=== PATIENT | male | born 1995 | race African-American/Black ===

== ENCOUNTER 2016-06-20 21:04 | Emergency (ER) | payer SELFPAY ==
[~2016-06-20] VITALS: Ht 188 cm; Wt 104.3 kg
[2016-06-20] MEDS ORDERED: LORAZEPAM INJ 2 MG/ML VIAL ONE (21:29)
[2016-06-20] MEDS ORDERED: LORAZEPAM INJ 2 MG/ML VIAL IV ONE (21:30)
[2016-06-20] MEDS ORDERED: IV NS 0.9% 1,000 ML ONE (21:30)
[2016-06-20] MEDS ORDERED: IV NS 0.9% 1,000 ML BAG IV ONE (21:30)
[2016-06-20] MEDS ORDERED: IV SET PRIMARY 1 EA INFUS.SET MC ONE (21:30)
[2016-06-20 21:41] LABS: BASOPHILS % (AUTO) 0.6 % (0.0-2.0); DIFF TOTAL % 100 %; EOSINOPHILS # (AUTO) 0.1 /CMM (0.0-0.7); HEMATOCRIT 44 % (39-51); HEMOGLOBIN 14.1 g/dL (13.5-17.5); LYMPHOCYTES # (AUTO) 2.3 /CMM (0.8-4.8); LYMPHOCYTES % (AUTO) 28.4 % (20.0-44.0); MEAN CORPUSCULAR HEMOGLOBIN 27 PG (26.0-33.0); MEAN CORPUSCULAR HGB CONC 32 g/dl (31.0-36.0); MEAN CORPUSCULAR VOLUME 84 fL (80-96); MONOCYTES # (AUTO) 0.7 /CMM (0.1-1.30); MONOCYTES % (AUTO) 9.1 % (2.0-12.0); NEUTROPHILS # (AUTO) 5.1 /CMM (1.8-8.9); NEUTROPHILS % (AUTO) 60.9 % (43.0-81.0); PLATELET COUNT (AUTO) 189 /CMM (150-450); RED BLOOD CELL COUNT(AUTO) 5.23 MIL/uL (4.5-6.0); WHITE BLOOD COUNT (AUTO) 8.2 K/uL (4.3-11.0)
[2016-06-20 21:50] LABS: ANION GAP 12 (5-14); CALCIUM, SERUM 8.9 mg/dL (8.5-10.1); CARBON DIOXIDE 28 mmol/L (21-32); CHLORIDE 103 mmol/L (98-107); CREATININE 1.1 mg/dL (0.6-1.3); GFR 85 mL/min (>60); GLUCOSE 93 mg/dL (74-106); POTASSIUM 3.3 mmol/L (3.5-5.1); SODIUM SERUM 139 mmol/L (136-145); UREA NITROGEN, BLOOD 14 mg/dL (7-18)
[2016-06-20 21:52] LABS: KETONES,URINE Negative (NEGATIVE); LEUKOCYTE ESTERASE ,URINE Negative (NEGATIVE)
[2016-06-20 21:55] LABS: ALANINE AMINOTRANSFERASE 32 U/L (12-78); ALBUMIN 4.2 g/dL (3.4-5.0); ASPARTATE AMINOTRANSFERASE 34 U/L (15-37); BILIRUBIN,DIRECT 0.1 mg/dL (0.0-0.2); BILIRUBIN,TOTAL 0.6 mg/dL (0.2-1.0); INDIRECT BILIRUBIN 0.5 mg/dL (0.0-1.1); TOTAL PROTEIN, SERUM 7.6 g/dL (6.4-8.2)
[2016-06-20 21:55] LABS: ADD UA MICROSCOPIC YES
[2016-06-20 21:57] LABS: ADD URINE CULTURE NO; WBC,URINE 0-2 /HPF (0-3)
[2016-06-20 21:58] LABS: CANNABINOID, URINE NEGATIVE (NEGATIVE); PHENCYCLIDINE SCREEN,URINE NEGATIVE (NEGATIVE)
[2016-06-21 02:13] VITALS: BP 120/61
== END 2016-06-21 02:14 | disposition home or self-care (01) ==
LOC: ER 21:07
DX: R41.82 Altered mental status, unspecified (principal)
CPT/HCPCS: 36415; 70450-TC; 80048-TC; 80076-TC; 80305; 81000-TC; 85025-TC; A4606; G6040-TC; J2060; J7030; Z7610

== ENCOUNTER 2016-06-21 12:24 | Emergency (ER) | payer SELFPAY ==
[~2016-06-21] VITALS: Ht 175.3 cm; Wt 75.3 kg
[2016-06-21 12:24] VITALS: BP 139/58
[2016-06-21] MEDS ORDERED: LORAZEPAM 1 MG TABLET ONE (13:56)
[2016-06-21] MEDS ORDERED: LORAZEPAM 1 MG TABLET PO ONE (14:00)
== END 2016-06-21 14:04 | disposition home or self-care (01) ==
LOC: ER 12:48
DX: R41.82 Altered mental status, unspecified (principal)
CPT/HCPCS: A4606; Z7610